=== PATIENT | female | born 1980 | race Caucasian/White ===

== ENCOUNTER 2019-03-26 12:41 | Outpatient (CLI) | payer OTHER ==
[2019-03-26 13:41] LABS: BHCG - Serum Negative (NEGATIVE); Pregs Control Background? CLEAR/WHITE (CLR/WHITE); Pregs Control Bar Appear? YES (CONTROL BAR)
[2019-03-26 13:53] LABS: Follow-up Chemistry Comp? YES
[2019-03-26] MEDS ORDERED: Iopamidol 300 61% 30 ML VIAL ONE (20:53)
--- NOTE | 2019-03-27 09:48 | RAD ---
HYSTEROSALPINGOGRAM: CLINICAL HISTORY: A 38-year-old female with a history of infertility. FINDINGS: Real-time fluoroscopic imaging performed subsequent to cannulation of the cervical canal with low pre ssure instillation of contrast material. Contrast opacification of the endometrial canal reveals sub tle areas of filling defect approximating the ostia of each proximal fallopian tube, although there i s subsequent opacification of each fallopian tube with free spill into the pelvic cavity. A slight d egree of asymmetric dilatation and redundancy of the right fallopian tube is noted and there is the p ossibility of a punctate sacular outpouching from the right fallopian tube. IMPRESSION: 1. Subtle areas of filling defect within the endometrial cavity. This could be on the basis of syne miky, as these findings do persist throughout the exam. Recommend appropriate clinical followup in t his regard. 2. Slight asymmetric dilatation of the right fallopian tube with the possibility of subtle sacular o utpouchings. This could be on the basis of an entity such as salpingitis isthmica nodosa, or possibl y could relate to sequelae from prior inflammatory events. Each fallopian tube is patent, with free spill into the pelvic cavity. Findings were discussed at the time of the exam with the patient's care provider, Marsha Bains. CODE CR
== END 2019-03-26 12:42 | disposition home or self-care (01) ==
LOC: RAD 12:41
PROVIDERS: ATTEND Advanced Practice Midwife
DX: N97.9 Female infertility, unspecified (principal)
CPT/HCPCS: 36415; 58340; 74740; 84703; Q9967